=== PATIENT | male | born 1940 | race Caucasian/White ===

== ENCOUNTER → 2016-12-01 14:25 | Outpatient (CLI) | payer MEDICARE | END | disposition home or self-care (01) | LOC: D.US 14:25 → D.MRI 16:00 | DX: R25.1 Tremor, unspecified (principal) ==

== ENCOUNTER 2017-05-13 09:23 | Emergency (ER) | payer MEDICARE ==
[2017-05-13 09:56] LABS: BASOPHILS 0.3 % (0-2); EOSINOPHILS 0.2 % (0-7); HEMATOCRIT 43.9 % (42.0-54.0); HEMOGLOBIN 14.8 g/dL (13.5-17.5); IMMATURE GRANULOCYTES 0.3 % (0-5); LYMPHOCYTES 14.3 % (15-50); MCHC 33.7 g/dL (31.0-37.0); MEAN PLATELET VOLUME 12.2 fL (7.4-10.4); MONOCYTES 17.8 % (2-11); NEUTROPHILS 67.1 % (40-80); PLATELET COUNT 109 10x3/uL (130-400); RBC 4.93 10x6/uL (4.20-6.10); RDW 13.3 % (11.5-14.5); WBC 6.1 10x3/uL (4.8-10.8)
[2017-05-13 10:09] LABS: ALBUMIN 3.8 g/dL (3.4-5.0); ALKALINE PHOSPHATASE 89 U/L (46-116); ALT (SGPT) 42 U/L (10-68); BILIRUBIN - TOTAL 0.44 mg/dL (0.2-1.3); CALC OSMOLALITY 281 mosm/kg (275-300); CALCIUM 9.3 mg/dL (8.5-10.1); CARBON DIOXIDE 24.5 mmol/L (21.0-32.0); CHLORIDE - SERUM 103 mmol/L (98-107); CREATININE - SERUM 1.3 mg/dL (0.6-1.3); GLUCOSE 173 mg/dL (74-106); PROTEIN - SERUM 7.3 g/dL (6.4-8.2); SODIUM 137 mmol/L (136-145); UREA NITROGEN 25 mg/dL (7-18); eGFR NON AFRICAN AMERICAN 57 mL/min (90-120)
[2017-05-13 10:42] LABS: CREATINE KINASE 77 UL (21-232); MAGNESIUM - SERUM 1.7 mg/dL (1.8-2.4)
[2017-05-13 10:43] LABS: TROPONIN-I < 0.017 ng/mL (0.000-0.060)
== END 2017-05-13 12:34 | disposition home or self-care (01) ==
LOC: D.ER 09:23
PROVIDERS: Emergency Medicine
DX: R53.1 Weakness (principal); I10 Essential (primary) hypertension; E11.9 Type 2 diabetes mellitus without complications; H40.9 Unspecified glaucoma; C61 Malignant neoplasm of prostate; I44.0 Atrioventricular block, first degree

== ENCOUNTER 2017-09-17 13:38 | Emergency (ER) | payer MEDICARE ==
[2017-09-17 14:35] LABS: BASOPHILS 0.6 % (0-2); EOSINOPHILS 1.6 % (0-7); HEMOGLOBIN 11.5 g/dL (13.5-17.5); IMMATURE GRANULOCYTES 0.2 % (0-5); LYMPHOCYTES 19.4 % (15-50); MCH 30.8 pg (26.0-34.0); MCHC 32.9 g/dL (31.0-37.0); MCV 93.8 fL (80.0-100.0); MEAN PLATELET VOLUME 12.5 fL (7.4-10.4); MONOCYTES 6.8 % (2-11); NEUTROPHILS 71.4 % (40-80); PLATELET COUNT 125 10x3/uL (130-400); RBC 3.73 10x6/uL (4.20-6.10); WBC 6.2 10x3/uL (4.8-10.8)
[2017-09-17 14:51] LABS: INR 1.13 (0.85-1.17); PROTIME 14.4 SECONDS (11.6-15.0)
[2017-09-17 14:52] LABS: APTT 29.8 SECONDS (22.8-39.4)
[2017-09-17 14:57] LABS: ALBUMIN 3.2 g/dL (3.4-5.0); BILIRUBIN - TOTAL 0.25 mg/dL (0.2-1.3); CALCIUM 9.3 mg/dL (8.5-10.1); CARBON DIOXIDE 24.3 mmol/L (21.0-32.0); CREATININE - SERUM 1.1 mg/dL (0.6-1.3); POTASSIUM - SERUM 4.3 mmol/L (3.5-5.1); PROTEIN - SERUM 6.6 g/dL (6.4-8.2)
[2017-09-17 16:24] LABS: APPEARANCE CLEAR (CLEAR); BILIRUBIN NEGATIVE (NEGATIVE); COLOR YELLOW (YELLOW); GLUCOSE NEGATIVE (NEGATIVE); KETONE NEGATIVE (NEGATIVE); NITRITE NEGATIVE (NEGATIVE); PROTEIN TRACE mg/dL (NEGATIVE); SPECIFIC GRAVITY 1.015 (1.005-1.020); UROBILINOGEN NORMAL (NORMAL)
[2017-09-17 19:31] LABS: HEMATOCRIT 33.5 % (42.0-54.0); HEMOGLOBIN 11.2 g/dL (13.5-17.5)
[2017-12-20] MEDS ORDERED: NORVASC5 MG PO (11:19)
[2017-12-20] MEDS ORDERED: LIPITOR80 MG PO (11:20)
[2017-12-20] MEDS ORDERED: COREG12.5 MG PO (11:20)
[2017-12-20] MEDS ORDERED: ISOSORBIDE MONO30 M1 PO (11:21)
[2017-12-20] MEDS ORDERED: PRINIVIL20 MG PO (11:21)
[2017-12-20] MEDS ORDERED: GLUCOPHAGE1000 MG PO (11:22)
[2017-12-20] MEDS ORDERED: XALATAN 0.0052.5 ML EACH EYE (11:22)
[2017-12-21 08:50] VITALS: BMI 24.4
== END 2017-09-17 19:42 | disposition home or self-care (01) ==
LOC: OBSVTIME → D.ER 13:38 → OBSVTIME 19:18 → D.M2 19:18 → D.ER 19:18
PROVIDERS: Family Medicine; Nurse Practitioner Family
DX: K92.2 Gastrointestinal hemorrhage, unspecified (principal); E11.9 Type 2 diabetes mellitus without complications; H40.9 Unspecified glaucoma; I10 Essential (primary) hypertension

== ENCOUNTER 2017-11-29 10:51 | Inpatient (IN) | payer MEDICARE ==
[~2017-11-29] VITALS: Ht 172.7 cm; Wt 71.2 kg
[2017-11-29 11:23] LABS: APPEARANCE CLEAR (CLEAR); BILIRUBIN NEGATIVE (NEGATIVE); COLOR YELLOW (YELLOW); GLUCOSE NEGATIVE (NEGATIVE); KETONE SMALL mg/dL (NEGATIVE); NITRITE NEGATIVE (NEGATIVE); PROTEIN 2+ mg/dL (NEGATIVE); SPECIFIC GRAVITY 1.015 (1.005-1.020); UROBILINOGEN NORMAL (NORMAL)
[2017-11-29 11:49] LABS: BACTERIA FEW /hpf (NONE SEEN); EPITHELIAL CELLS OCC /hpf (0-5); MUCUS <1+ /lpf (NONE SEEN); RED CELLS - URINE 0-5 /hpf (0-5); WHITE CELLS - URINE 0-5 /hpf (0-5)
[2017-11-29 11:50] LABS: HEMATOCRIT 34.4 % (42.0-54.0); HEMOGLOBIN 10.8 g/dL (13.5-17.5); LYMPHOCYTES 14.4 % (15-50); MCH 25.4 pg (26.0-34.0); MCHC 31.4 g/dL (31.0-37.0); MCV 80.8 fL (80.0-100.0); MEAN PLATELET VOLUME 11.5 fL (7.4-10.4); PLATELET COUNT 107 10x3/uL (130-400); RBC 4.26 10x6/uL (4.20-6.10); RDW 14.8 % (11.5-14.5); WBC 4.7 10x3/uL (4.8-10.8)
[2017-11-29 12:04] LABS: ALBUMIN 3.4 g/dL (3.4-5.0); ALKALINE PHOSPHATASE 76 U/L (46-116); ALT (SGPT) 38 U/L (10-68); CALC OSMOLALITY 281 mosm/kg (275-300); CALCIUM 8.9 mg/dL (8.5-10.1); CARBON DIOXIDE 25.6 mmol/L (21.0-32.0); CHLORIDE - SERUM 104 mmol/L (98-107); CREATININE - SERUM 0.9 mg/dL (0.6-1.3); GLUCOSE 138 mg/dL (74-106); POTASSIUM - SERUM 3.4 mmol/L (3.5-5.1); PROTEIN - SERUM 6.8 g/dL (6.4-8.2); SODIUM 140 mmol/L (136-145); UREA NITROGEN 16 mg/dL (7-18); eGFR NON AFRICAN AMERICAN 87 mL/min (90-120)
[2017-11-29] MEDS ORDERED: GABAPENTIN100 MG PO (19:55)
[2017-11-29] MEDS ORDERED: MYSOLINE250 MG (19:55)
[2017-11-29] MEDS ORDERED: PEPCID AC20 MG (19:56)
[2017-11-29] MEDS ORDERED: CARAFATE1 G PO (19:56)
[2017-11-29] MEDS ORDERED: OMEPRAZOLE40 MG (19:57)
[2017-11-29 22:44] VITALS: BP 178/90
[2017-11-30 00:59] VITALS: BP 105/77
[2017-11-30 04:32] VITALS: Ht 172.7 cm; Wt 71.2 kg
[2017-11-30 05:12] LABS: BASOPHILS 0.4 % (0-2); EOSINOPHILS 0.2 % (0-7); HEMATOCRIT 34.9 % (42.0-54.0); MCH 25.8 pg (26.0-34.0); MCHC 31.5 g/dL (31.0-37.0); MCV 81.9 fL (80.0-100.0); MEAN PLATELET VOLUME 11.5 fL (7.4-10.4); MONOCYTES 22.6 % (2-11); NEUTROPHILS 54.8 % (40-80); PLATELET COUNT 107 10x3/uL (130-400); RBC 4.26 10x6/uL (4.20-6.10); RDW 14.9 % (11.5-14.5); WBC 4.5 10x3/uL (4.8-10.8)
[2017-11-30 05:27] VITALS: BP 109/73
[2017-11-30 05:40] LABS: ALBUMIN 2.9 g/dL (3.4-5.0); ALKALINE PHOSPHATASE 63 U/L (46-116); BILIRUBIN - TOTAL 0.31 mg/dL (0.2-1.3); CALC OSMOLALITY 280 mosm/kg (275-300); CALCIUM 8.8 mg/dL (8.5-10.1); CHLORIDE - SERUM 103 mmol/L (98-107); CREATININE - SERUM 0.9 mg/dL (0.6-1.3); GLUCOSE 131 mg/dL (74-106); POTASSIUM - SERUM 3.5 mmol/L (3.5-5.1); PROTEIN - SERUM 6.3 g/dL (6.4-8.2); SODIUM 139 mmol/L (136-145); UREA NITROGEN 16 mg/dL (7-18); eGFR NON AFRICAN AMERICAN 87 mL/min (90-120)
[2017-11-30 05:44] LABS: ALT (SGPT) 48 U/L (10-68); CARBON DIOXIDE 19.1 mmol/L (21.0-32.0)
[2017-11-30 08:52] VITALS: BP 136/67
[2017-11-30 12:07] VITALS: BP 135/71
[2017-11-30 18:02] VITALS: BP 147/80
[2017-11-30 19:00] VITALS: BP 149/77
[2017-12-01] VITALS: BP 167/80
[2017-12-01 04:00] VITALS: BP 178/81
[2017-12-01 06:35] LABS: BASOPHILS 0.3 % (0-2); EOSINOPHILS 1.9 % (0-7); HEMATOCRIT 34.1 % (42.0-54.0); HEMOGLOBIN 10.7 g/dL (13.5-17.5); LYMPHOCYTES 26.8 % (15-50); MCH 25.5 pg (26.0-34.0); MCHC 31.4 g/dL (31.0-37.0); MCV 81.2 fL (80.0-100.0); PLATELET COUNT 102 10x3/uL (130-400); RDW 14.8 % (11.5-14.5)
[2017-12-01 06:36] LABS: WBC 3.1 10x3/uL (4.8-10.8)
[2017-12-01 07:07] LABS: ALBUMIN 2.8 g/dL (3.4-5.0); ALKALINE PHOSPHATASE 58 U/L (46-116); ALT (SGPT) 59 U/L (10-68); BILIRUBIN - TOTAL 0.27 mg/dL (0.2-1.3); CALC OSMOLALITY 288 mosm/kg (275-300); CALCIUM 8.8 mg/dL (8.5-10.1); CARBON DIOXIDE 28.3 mmol/L (21.0-32.0); CHLORIDE - SERUM 105 mmol/L (98-107); CREATININE - SERUM 0.9 mg/dL (0.6-1.3); GLUCOSE 152 mg/dL (74-106); POTASSIUM - SERUM 3.2 mmol/L (3.5-5.1); PROTEIN - SERUM 6.1 g/dL (6.4-8.2); SODIUM 143 mmol/L (136-145); UREA NITROGEN 15 mg/dL (7-18); eGFR NON AFRICAN AMERICAN 87 mL/min (90-120)
[2017-12-01 07:51] VITALS: BP 144/86
[2017-12-01 11:43] VITALS: BP 147/88
[2017-12-01] MEDS ORDERED: TAMIFLU75 MG PO (12:05)
[2017-12-01 15:18] VITALS: BP 147/88
[2017-12-01 16:31] VITALS: BP 152/81
[2017-12-20] MEDS ORDERED: NORVASC5 MG PO (11:19)
[2017-12-20] MEDS ORDERED: LIPITOR80 MG PO (11:20)
[2017-12-20] MEDS ORDERED: COREG12.5 MG PO (11:20)
[2017-12-20] MEDS ORDERED: PRINIVIL20 MG PO (11:21)
[2017-12-20] MEDS ORDERED: ISOSORBIDE MONO30 M1 PO (11:21)
[2017-12-20] MEDS ORDERED: GLUCOPHAGE1000 MG PO (11:22)
[2017-12-20] MEDS ORDERED: XALATAN 0.0052.5 ML EACH EYE (11:22)
== END 2017-12-01 18:11 | disposition home or self-care (01) | DRG 195 ==
LOC: D.ER 10:51 → D.M2 16:15
PROVIDERS: Emergency Medicine
DX: J11.00 Influenza due to unidentified influenza virus with unspecified type of pneumonia (principal); R31.29 Other microscopic hematuria; E11.65 Type 2 diabetes mellitus with hyperglycemia; I10 Essential (primary) hypertension; I25.10 Atherosclerotic heart disease of native coronary artery without angina pectoris; G20 Parkinson's disease; H40.9 Unspecified glaucoma; R74.8 Abnormal levels of other serum enzymes; D64.9 Anemia, unspecified; Z95.5 Presence of coronary angioplasty implant and graft

== ENCOUNTER 2017-12-21 05:52 | Day surgery (SDC) | payer MEDICARE ==
[2017-12-20 12:07] LABS: HEMATOCRIT 35.9 % (42.0-54.0); HEMOGLOBIN 11.1 g/dL (13.5-17.5); MCH 25.5 pg (26.0-34.0); MCHC 30.9 g/dL (31.0-37.0); MCV 82.3 fL (80.0-100.0); MEAN PLATELET VOLUME 11.3 fL (7.4-10.4); RBC 4.36 10x6/uL (4.20-6.10); RDW 15.8 % (11.5-14.5); WBC 4.2 10x3/uL (4.8-10.8)
[2017-12-20 12:22] LABS: CALC OSMOLALITY 291 mosm/kg (275-300); CARBON DIOXIDE 30.7 mmol/L (21.0-32.0); CHLORIDE - SERUM 107 mmol/L (98-107); CREATININE - SERUM 0.9 mg/dL (0.6-1.3); GLUCOSE 173 mg/dL (74-106); POTASSIUM - SERUM 3.9 mmol/L (3.5-5.1); SODIUM 143 mmol/L (136-145); UREA NITROGEN 20 mg/dL (7-18); eGFR NON AFRICAN AMERICAN 87 mL/min (90-120)
[~2017-12-21] VITALS: Ht 175.3 cm; Wt 74.8 kg
--- NOTE | ~2017-12-21 | OP ---
PATIENT NAME: MIMI TAVARES MEDICAL RECORD: [id number] :40 LOCATION:[facility] ADMISSION DATE: SURGEON: JEFF SABILLON DO DATE OF OPERATION: 12/21/2017 PROCEDURE PERFORMED: Right endoscopic carpal tunnel release. PREOPERATIVE DIAGNOSIS: Right carpal tunnel syndrome. POSTOPERATIVE DIAGNOSIS: Right carpal tunnel syndrome. INDICATIONS: Mr. Tavares is a 77-year-old male who has had pain in his right and left hands, right more than left that have waking him up and numbness. His first 3 digits are completely numb on the right hand. He had nerve conduction studies, which showed a distal motor latency of the median nerve of 10.2, which is severe carpal tunnel. I had a discussion with him that we can release it endoscopically and make the pain go away; however, due to the severity of the compression, there is no guarantees that he would get the feeling back, but it is worth to try. He was on board with that and decided to proceed with the procedure. The risks were discussed with him including damage to the median nerve and continued numbness. SURGEON: Jeff Sabillon DO TOURNIQUET TIME: 15 minutes. COMPLICATIONS: None. BLOOD LOSS: Minimal. DESCRIPTION OF PROCEDURE: The patient was taken to the operative suite, laid in supine position, and given general anesthetic, a gram of Ancef prior to surgery. A timeout was performed and everyone was in agreement with the correct site, side, and the patient. The right upper extremity was prepped and draped in sterile fashion with tourniquet above the elbow under the drapes. Once timeout was performed and everyone was in agreement, the right upper extremity was exsanguinated with an Esmarch and tourniquet was inflated to 250 mmHg. After this was done, the incision was marked out over the palmaris longus tendon transversely at the wrist crease approximately 1 cm in length. A 15 blade was used to cut down through the skin and then once the skin was cut, Ragnells were used to bluntly dissect down to the forearm fascia. The forearm fascia was dissected with the Ragnells as well and the median nerve was visualized. The proximal forearm fascia was released at that time with a scissors and pickup and then the carpal tunnel was entered with the dilators. Once we dilated up large enough to get the sheath in, the sheath was put into place and the cannula was put in visualizing the transverse carpal ligament at the length of it. The ligament was cleaned off with a rasp and then probed and ensuring there was nothing else that would be in the blades way being cut. The sheath protected the nerve below it. The transcarpal ligament was cut with a knife, fat was herniated into this site ensuring a good release and then the scope and the knife were withdrawn as well as the sheath and then the remaining fibers were with scissors after the non-sharp end of a Pamela was put in to ensure complete release and visualized under loupe magnification. This was done. There was complete release and the nerve was no longer compressed. The tourniquet was then let down 15 minutes and then 0.5% Marcaine without OPERATIVE REPORT [id number] MIMI TAVARES epinephrine was injected into the area, 10 mL of it and then the wound was closed with a 5-0 Monocryl in inverted interrupted fashion. Steri-Strip was placed over the wound. Adaptic, 4 x 4's, Kerlix, and a Coban was lightly wrapped on the wrist. The patient was awakened and taken to recovery in stable condition. TRANSINT:[id number] Voice Confirmation ID: [id number] DOCUMENT ID: [id number] JEFF SABILLON DO at 1516 CC: [id number] DICTATION DATE: 12/21/17 1119 FILTER PRESS SUPERVISOR: 12/21/[address] [facility] 12/21/17 [facility] [address] [place] [address]
[~2017-12-21 05:52] MED LIST: CARAFATE1 G PO; COREG12.5 MG PO; GABAPENTIN100 MG PO; GLUCOPHAGE1000 MG PO; ISOSORBIDE MONO30 M1 PO; LIPITOR80 MG PO; MYSOLINE250 MG; NORVASC5 MG PO; OMEPRAZOLE40 MG; PEPCID AC20 MG; PRINIVIL20 MG PO; TAMIFLU75 MG PO; XALATAN 0.0052.5 ML EACH EYE
[2017-12-21] MEDS ORDERED: GABAPENTIN100 MG PO (08:47)
[2017-12-21 08:50] VITALS: BP 155/75; Ht 175.3 cm; Wt 74.8 kg
[2017-12-21] MEDS ORDERED: DURICEF500 MG PO (11:13)
[2017-12-21] MEDS ORDERED: HYDROCODON-ACE1 EAC7 PO (11:13)
== END 2017-12-21 13:10 | disposition home or self-care (01) ==
LOC: D.OPS 05:52
PROVIDERS: Anesthesiology
DX: G56.01 Carpal tunnel syndrome, right upper limb (principal); Z01.812 Encounter for preprocedural laboratory examination

== ENCOUNTER 2018-01-04 07:22 | Day surgery (SDC) | payer MEDICARE ==
[2018-01-03 09:16] LABS: BASOPHILS 0.3 % (0-2); EOSINOPHILS 0.9 % (0-7); HEMATOCRIT 36.2 % (42.0-54.0); HEMOGLOBIN 11.3 g/dL (13.5-17.5); IMMATURE GRANULOCYTES 0.2 % (0-5); MCH 25.2 pg (26.0-34.0); MCHC 31.2 g/dL (31.0-37.0); MCV 80.8 fL (80.0-100.0); MEAN PLATELET VOLUME 11.2 fL (7.4-10.4); MONOCYTES 9.1 % (2-11); NEUTROPHILS 79.5 % (40-80); PLATELET COUNT 163 10x3/uL (130-400); RBC 4.48 10x6/uL (4.20-6.10); RDW 16.5 % (11.5-14.5); WBC 9.7 10x3/uL (4.8-10.8)
[2018-01-03 09:28] LABS: CALC OSMOLALITY 293 mosm/kg (275-300); CALCIUM 9.1 mg/dL (8.5-10.1); CARBON DIOXIDE 26.5 mmol/L (21.0-32.0); CHLORIDE - SERUM 107 mmol/L (98-107); CREATININE - SERUM 0.9 mg/dL (0.6-1.3); GLUCOSE 147 mg/dL (74-106); POTASSIUM - SERUM 3.5 mmol/L (3.5-5.1); SODIUM 144 mmol/L (136-145); UREA NITROGEN 23 mg/dL (7-18); eGFR NON AFRICAN AMERICAN 87 mL/min (90-120)
[2018-01-03 09:31] LABS: APTT 31.1 SECONDS (22.8-39.4); INR 1.07 (0.85-1.17); PROTIME 13.5 SECONDS (11.6-15.0)
[~2018-01-04] VITALS: Ht 175.3 cm; Wt 74.8 kg
--- NOTE | ~2018-01-04 | OP ---
PATIENT NAME: MIMI TAVARES MEDICAL RECORD: [id number] :40 LOCATION:[facility] ADMISSION DATE: SURGEON: HOSEA SABILLON DO DATE OF OPERATION: 01/04/2018 PROCEDURE PERFORMED: Left endoscopic carpal tunnel release. PREOPERATIVE DIAGNOSIS: Left carpal tunnel syndrome. POSTOPERATIVE DIAGNOSIS: Left carpal tunnel syndrome. INDICATIONS: Mr. Tavares is a 77-year-old male who presented to my office with bilateral carpal tunnel symptoms and problems, got nerve conduction studies. The right nerve conduction study was very severe carpal tunnel, the left was moderate to severe. He wanted the right done first and this was done 2 weeks ago. A discussion with him with the risks and benefits of the procedure including damage to the nerve and that due to the severity of the compression on the median nerve, he may not get sensation back in his hand, but the pain should improve. After having that discussion with the patient, he was okay with doing the procedure. The right was done 2 weeks ago and the left was done today. SURGEON: Hosea Sabillon DO DESCRIPTION OF PROCEDURE: The patient was taken to the operative suite, laid in supine position, given a gram of Ancef preoperatively. The left upper extremity was prepped and draped with a tourniquet above the drapes of the upper arm. Once this was done, timeout was performed, everyone was in agreement with correct side, site, and patient. The incision was then marked out about a cm in length over the palmaris longus tendon and then the left upper extremity was exsanguinated with an Esmarch and the tourniquet was inflated and was up for 11 minutes. Incision then commenced with a 15 blade down through the skin and then Ragnells were used to bluntly dissect down to the carpal tunnel. Once the median nerve was identified, Ragnells were held to retract the skin and a forearm fasciotomy was done proximal to the wrist and the forearm fascia. Then the carpal tunnel itself was entered with dilators and then once this was dilated up the sheath was entered, protecting the median nerve, had the median nerve below it. The transverse carpal ligament was nicely viewed to the camera. Once the camera was entered into the sheath, a probe and a rasp were used to clean off the transverse carpal ligament. Then the blade was entered in. It had been entered in distal to the transcarpal ligament and cut a little bit through the palmar skin small laceration of less than a centimeter. Then this was noted and the transverse carpal ligament was divided with the same blade below the skin and then once this was done fat had herniated down into the carpal tunnel itself. This was seen with the camera and the more proximal portion of the transverse carpal ligament was divided with the scissors and pickup under direct visualization with loops. After this was completed, the sheath had been withdrawn and the camera too as was the blade prior to this. A larger Ragnell was used to view the carpal tunnel and scissors were used to spread any fibers that may have remained in the transverse carpal ligament. It seemed out to be a very good release. The tourniquet was then let down at 11 minutes. Any bleeding was coagulated with bipolar at that time. Then the laceration that had occurred in the palm just distal to the transverse carpal ligament was closed with 4-0 nylon in a horizontal mattress fashion as well as the incision for the endoscopic carpal tunnel just proximal to the wrist was closed with 4-0 nylon in a horizontal mattress fashion. Then 10 cc of 0.5% OPERATIVE REPORT [id number] MIMI TAVARES Marcaine were used to anesthetize the area and hand was cleaned. Adaptic was put on the wound, 4 x 4s, Kerlix, and Coban was lightly wrapped on the left hand. The patient was awakened and taken to recovery in stable condition. Blood loss was minimal. TRANSINT:[id number] Voice Confirmation ID: [id number] DOCUMENT ID: [id number] HOSEA SABILLON DO at 1452 CC: [id number] DICTATION DATE: 01/04/18 0932 TRUSS ASSEMBLER: 01/04/18 1017 [facility] 01/04/18 [facility] [address] [place] [id number]
[2018-01-04 07:14] VITALS: BP 149/77; Ht 175.3 cm; Wt 74.8 kg
[~2018-01-04 07:22] MED LIST changes: +DURICEF500 MG PO; +HYDROCODON-ACE1 EAC7 PO; +PEPCID AC20 MG PO
[2018-01-04] MEDS ORDERED: DURICEF500 MG PO (09:26)
[2018-01-04] MEDS ORDERED: HYDROCODON-ACE1 EAC7 PO (09:26)
== END 2018-01-04 11:00 | disposition home or self-care (01) ==
LOC: D.OPS 07:22 → D.PAN 09:00 → D.OPS 11:00
PROVIDERS: Anesthesiology
DX: G56.02 Carpal tunnel syndrome, left upper limb (principal); I25.10 Atherosclerotic heart disease of native coronary artery without angina pectoris; I10 Essential (primary) hypertension; E11.9 Type 2 diabetes mellitus without complications; G47.30 Sleep apnea, unspecified; Z01.812 Encounter for preprocedural laboratory examination

== ENCOUNTER 2018-02-13 02:18 | Emergency (ER) | payer MEDICARE ==
[2018-01-04 07:14] VITALS: BMI 24.4
== END 2018-02-13 05:35 | disposition home or self-care (01) ==
LOC: D.ER 02:18
DX: S70.01XA Contusion of right hip, initial encounter (principal); X58.XXXA Exposure to other specified factors, initial encounter; Y93.89 Activity, other specified; Y92.019 Unspecified place in single-family (private) house as the place of occurrence of the external cause; M79.1 Myalgia; H40.9 Unspecified glaucoma; Z86.79 Personal history of other diseases of the circulatory system; I10 Essential (primary) hypertension; Z85.46 Personal history of malignant neoplasm of prostate; G20 Parkinson's disease

== ENCOUNTER 2018-07-12 23:57 | Emergency (ER) | payer MEDICARE ==
[~2018-07-12] VITALS: Ht 175.3 cm; Wt 70.5 kg
[2018-07-12 23:59] VITALS: Ht 175.3 cm; Wt 70.5 kg
[2018-07-13] MEDS ORDERED: ZONISAMIDE50 MG PO (00:05)
[2018-07-13] MEDS ORDERED: COREG25 MG PO (00:08)
[2018-07-13] MEDS ORDERED: FLOMAX0.4 MG PO (00:11)
[2018-07-13 01:30] LABS: BASOPHILS 0.6 % (0-2); EOSINOPHILS 1.5 % (0-7); HEMATOCRIT 38.7 % (42.0-54.0); HEMOGLOBIN 13.3 g/dL (13.5-17.5); IMMATURE GRANULOCYTES 0.4 % (0-5); LYMPHOCYTES 23.2 % (15-50); MCH 30.6 pg (26.0-34.0); MCHC 34.4 g/dL (31.0-37.0); MCV 89.2 fL (80.0-100.0); MONOCYTES 12.2 % (2-11); NEUTROPHILS 62.1 % (40-80); PLATELET COUNT 143 10x3/uL (130-400); RBC 4.34 10x6/uL (4.20-6.10); RDW 13.4 % (11.5-14.5); WBC 5.4 10x3/uL (4.8-10.8)
[2018-07-13 01:42] LABS: ALBUMIN 3.4 g/dL (3.4-5.0); ALKALINE PHOSPHATASE 105 U/L (46-116); ALT (SGPT) 41 U/L (10-68); BILIRUBIN - TOTAL 0.22 mg/dL (0.2-1.3); CALC OSMOLALITY 287 mosm/kg (275-300); CALCIUM 8.8 mg/dL (8.5-10.1); CARBON DIOXIDE 27.4 mmol/L (21.0-32.0); CHLORIDE - SERUM 107 mmol/L (98-107); CREATININE - SERUM 0.8 mg/dL (0.6-1.3); GLUCOSE 108 mg/dL (74-106); POTASSIUM - SERUM 4.3 mmol/L (3.5-5.1); PROTEIN - SERUM 6.9 g/dL (6.4-8.2); SODIUM 143 mmol/L (136-145); UREA NITROGEN 17 mg/dL (7-18); eGFR NON AFRICAN AMERICAN > 90 mL/min (90-120)
[2018-07-13 01:54] LABS: CKMB 1.9 U/L (0.0-3.6); CREATINE KINASE 57 UL (21-232); TROPONIN-I < 0.017 ng/mL (0.000-0.060)
[2018-07-13 03:55] VITALS: BP 140/68
== END 2018-07-13 03:55 | disposition home or self-care (01) ==
LOC: D.ER 23:57
PROVIDERS: Family Medicine
DX: I10 Essential (primary) hypertension (principal); E11.9 Type 2 diabetes mellitus without complications; Z85.46 Personal history of malignant neoplasm of prostate

== ENCOUNTER 2018-09-19 14:53 | Emergency (ER) | payer MEDICARE ==
[~2018-09-19] VITALS: Ht 175.3 cm; Wt 69.1 kg
[~2018-09-19 14:53] MED LIST changes: +COREG25 MG PO; +FLOMAX0.4 MG PO; +ZONISAMIDE50 MG PO
[2018-09-19 14:56] VITALS: Ht 175.3 cm; Wt 69.1 kg
[2018-09-19] MEDS ORDERED: CYCLOBENZAPRINE10 MG PO (16:36)
[2018-09-19] MEDS ORDERED: NAPROSYN500 MG PO (16:36)
[2018-09-19 17:07] VITALS: BP 158/89
== END 2018-09-19 17:08 | disposition home or self-care (01) ==
LOC: D.ER 14:53
DX: M62.838 Other muscle spasm (principal); S29.012A Strain of muscle and tendon of back wall of thorax, initial encounter; V43.52XA Car driver injured in collision with other type car in traffic accident, initial encounter; Y93.89 Activity, other specified; Y92.410 Unspecified street and highway as the place of occurrence of the external cause; S16.1XXA Strain of muscle, fascia and tendon at neck level, initial encounter; E11.9 Type 2 diabetes mellitus without complications; I10 Essential (primary) hypertension; K21.9 Gastro-esophageal reflux disease without esophagitis

== ENCOUNTER → 2021-01-18 11:42 | Outpatient (CLI) | payer OTHER ==
[2021-01-01 13:48] VITALS: BMI 23.6
[~2021-01-18 11:42] MED LIST changes: +CYCLOBENZAPRINE10 MG PO; +NAPROSYN500 MG PO
== END | disposition home or self-care (01) ==
LOC: D.CT 11:00
PROVIDERS: ATTEND Neurological Surgery
DX: S06.5X9A Traumatic subdural hemorrhage with loss of consciousness of unspecified duration, initial encounter (principal)

== ENCOUNTER → 2021-01-25 10:57 | Outpatient (CLI) | payer OTHER ==
[2021-01-01 13:48] VITALS: BMI 23.6
== END | disposition home or self-care (01) ==
LOC: D.CT 10:30
PROVIDERS: ATTEND Neurological Surgery
DX: S06.9X9A Unspecified intracranial injury with loss of consciousness of unspecified duration, initial encounter (principal)

== ENCOUNTER → 2021-02-15 10:32 | Outpatient (CLI) | payer OTHER ==
[2021-01-01 13:48] VITALS: BMI 23.6
== END | disposition home or self-care (01) ==
LOC: D.CT 10:32
PROVIDERS: ATTEND Neurological Surgery
DX: S06.5X9A Traumatic subdural hemorrhage with loss of consciousness of unspecified duration, initial encounter (principal)

== ENCOUNTER 2021-03-13 14:42 | Inpatient (IN) | payer OTHER ==
[2021-03-13] VITALS (7 sets, daily range): BP systolic 135–177; BP diastolic 77–100
[~2021-03-13] VITALS: Ht 175.3 cm; Wt 72.6 kg
[~2021-03-13 14:42] MED LIST changes: -ISOSORBIDE MONO30 M1 PO; +ISOSORBIDE MONO60 M1 PO; +NORVASC10 MG PO; -NORVASC5 MG PO
[2021-03-13] MEDS ORDERED: ASPIRIN EC81 MG PO (15:29)
--- NOTE | 2021-03-13 15:30 | NUR ---
PATIENT RETURNED BACK FROM CT SCAN. AWAKE AND ALERT. APPEARS THAT HEMATOMA AND BRUISING TO LEFT FLANK CONTINUES TO GROW. PHYSICIAN IS AWARE. PAIN MEDS AND NAUSEA MEDS GIVEN AT THIS TIME. FAMILY AT BEDSIDE. NO DISTRESS NOTED AT THI S TIME. C-COLLAR REMOVED PER VERBAL ORDER OF DR. COLEMAN. CALL PARDO IN REACH, SIDE RAILS UP X 2,.
[2021-03-13] MEDS ORDERED: VITAMIN D325 MC1 PO (15:31)
[2021-03-13] MEDS ORDERED: MAG-OX 400 MG400 MG PO (15:32)
[2021-03-13] MEDS ORDERED: REMERON30 MG PO (15:32)
[2021-03-13] MEDS ORDERED: KLONOPIN0.5 MG PO (15:32)
[2021-03-13] MEDS ORDERED: PROPRANOLOL HCL10 MG PO (15:33)
[2021-03-13] MEDS ORDERED: FISH OIL 1,0001 CA1 PO (15:33)
[2021-03-13 15:37] LABS: BASOPHILS 0.3 % (0-2); EOSINOPHILS 0.9 % (0-7); HEMATOCRIT 33.4 % (42.0-54.0); HEMOGLOBIN 10.7 g/dL (13.5-17.5); IMMATURE GRANULOCYTES 0.5 % (0-5); LYMPHOCYTE ABS# 0.78 10x3/uL (1.32-3.57); LYMPHOCYTES 7.8 % (15-50); MCV 93.6 fL (80.0-100.0); MEAN PLATELET VOLUME 11.8 fL (7.4-10.4); MONOCYTES 7.3 % (2-11); NEUTROPHIL ABS# 8.35 10x3/uL (1.78-5.38); NEUTROPHILS 83.2 % (40-80); PLATELET COUNT 151 10x3/uL (130-400); RBC 3.57 10x6/uL (4.20-6.10); RDW 13.5 % (11.5-14.5)
[2021-03-13 15:46] LABS: APTT 30.2 SECONDS (22.8-39.4); INR 1.24 (0.85-1.17); PROTIME 14.5 SECONDS (11.6-15.0)
[2021-03-13 15:48] LABS: ANION GAP 11.4 mmol/L (8-16); CALCIUM 8.3 mg/dL (8.5-10.1); CREATININE - SERUM 1.1 mg/dL (0.6-1.3); POTASSIUM - SERUM 4.4 mmol/L (3.5-5.1)
[2021-03-13 15:54] LABS: BILIRUBIN - TOTAL 0.23 mg/dL (0.2-1.3); PROTEIN - SERUM 5.8 g/dL (6.4-8.2)
--- NOTE | 2021-03-13 17:08 | NUR ---
DR. العراقي CALLED TO UPDATE ON WHAT APPEARS TO BE A GROWING HEMATOMA TO LEFT FLANK AREA. ORDERS GIVEN FOR CBC TO BE REDRAWN AT 1900 AND Q6 HRS AFTER THAT. ALSO WAS TOLD TO PAGE DR. HICKS AND NOTIFY HIM. DR. HICKS CALLED AND MADE AWARE AN HE SUGGESTED TO PLACE AN RADHA WRAP AROUND HIS WAIST TO TRY AND PUT PRESSURE ON THAT AREA.
--- NOTE | 2021-03-13 18:01 | NUR ---
PATIENT HAS TRAUMA BAND [id number] ON
[2021-03-13 18:20] LABS: CKMB 3.1 U/L (0.0-3.6); CREATINE KINASE 427 UL (21-232); MAGNESIUM - SERUM 1.9 mg/dL (1.8-2.4); TROPONIN-I < 0.017 ng/mL (0.000-0.060)
[2021-03-13 18:26] LABS: BILIRUBIN NEGATIVE (NEGATIVE); KETONE NEGATIVE (NEGATIVE); NITRITE NEGATIVE (NEGATIVE); UROBILINOGEN NORMAL mg/dL (< 2)
[2021-03-13 18:27] LABS: SQUAMOUS EPITHELIAL 0-5 HPF (0-4)
[2021-03-13 18:38] LABS: BASOPHILS 0.3 % (0-2); EOSINOPHILS 0.2 % (0-7); HEMATOCRIT 36.4 % (42.0-54.0); HEMOGLOBIN 11.8 g/dL (13.5-17.5); IMMATURE GRANULOCYTES 0.5 % (0-5); LYMPHOCYTE ABS# 0.48 10x3/uL (1.32-3.57); LYMPHOCYTES 4.5 % (15-50); MCH 30.2 pg (26.0-34.0); MCHC 32.4 g/dL (31.0-37.0); MCV 93.1 fL (80.0-100.0); MEAN PLATELET VOLUME 12.3 fL (7.4-10.4); MONOCYTES 7.2 % (2-11); NEUTROPHILS 87.3 % (40-80); PLATELET COUNT 167 10x3/uL (130-400); RBC 3.91 10x6/uL (4.20-6.10); RDW 13.6 % (11.5-14.5); WBC 10.8 10x3/uL (4.8-10.8)
[2021-03-14] VITALS (25 sets, daily range): BP systolic 122–179; BP diastolic 66–96; Ht 175.3 cm; Wt 72.6 kg
[2021-03-14 01:00] LABS: HEMATOCRIT 31.5 % (42.0-54.0); HEMOGLOBIN 10.2 g/dL (13.5-17.5)
[2021-03-14 04:27] LABS: BASOPHILS 0.1 % (0-2); EOSINOPHILS 0.4 % (0-7); HEMATOCRIT 31.4 % (42.0-54.0); HEMOGLOBIN 9.9 g/dL (13.5-17.5); IMMATURE GRANULOCYTES 0.3 % (0-5); LYMPHOCYTE ABS# 1.12 10x3/uL (1.32-3.57); LYMPHOCYTES 16.4 % (15-50); MCH 29.2 pg (26.0-34.0); MCHC 31.5 g/dL (31.0-37.0); MCV 92.6 fL (80.0-100.0); MEAN PLATELET VOLUME 12.2 fL (7.4-10.4); MONOCYTES 19.9 % (2-11); NEUTROPHIL ABS# 4.31 10x3/uL (1.78-5.38); NEUTROPHILS 62.9 % (40-80); PLATELET COUNT 166 10x3/uL (130-400); RBC 3.39 10x6/uL (4.20-6.10); RDW 13.8 % (11.5-14.5)
[2021-03-14 04:29] LABS: WBC 6.9 10x3/uL (4.8-10.8)
[2021-03-14 04:36] LABS: ALBUMIN 2.9 g/dL (3.4-5.0); BILIRUBIN - TOTAL 0.26 mg/dL (0.2-1.3); CALCIUM 8.5 mg/dL (8.5-10.1); CARBON DIOXIDE 25.6 mmol/L (21.0-32.0); CREATININE - SERUM 1.3 mg/dL (0.6-1.3); PROTEIN - SERUM 5.9 g/dL (6.4-8.2)
[2021-03-14 04:50] LABS: ANION GAP 12.1 mmol/L (8-16); POTASSIUM - SERUM 3.7 mmol/L (3.5-5.1)
--- NOTE | 2021-03-14 07:00 | NUR ---
REPORT RECEIVED. ASSESSMENT COMPLETE PER FLOW SHEET. VSS. PT RESTING COMFORTABLY WILL CONTINUE TO MONITOR
--- NOTE | 2021-03-14 08:00 | NUR ---
GIVEN PRN DILAUDID FOR PAIN ASSISTED OOB TO CHAIR WITH NO DIFFICULTY. BREAKFAST GIVEN
--- NOTE | 2021-03-14 09:10 | NUR ---
DR CADENA AT BEDSIDE GIVEN UPDATE NEW ORDERS RECEIVED. PT ATE 80% BREAKFAST.
--- NOTE | 2021-03-14 10:15 | NUR ---
PT BACK TO BED PER REQUEST DENIES FURTHER NEEDS
--- NOTE | 2021-03-14 11:00 | NUR ---
REASSESSMENT OCMPLETE PER FLOW SHEET. NO NEW CHANGES
--- NOTE | 2021-03-14 11:40 | NUR ---
GIVEN LUNCH TRAY ATE 100% RONN AT BEDSIDE NO NEW CHANGES
--- NOTE | 2021-03-14 13:10 | NUR ---
PT OOB TO BEDSIDE COMMODE NO BM NOTED.
--- NOTE | 2021-03-14 15:20 | NUR ---
DR WILLIAMSON AT BEDSIDE NO NEW ORDERS. REASSESSMENT COMPLETE PER FLOW SHEET. NO NEW CHANGES. VSS.
--- NOTE | 2021-03-14 16:10 | NUR ---
PT OOB TO CHAIR PER REQUEST. DENIES FURTHER NEEDS.
--- NOTE | 2021-03-14 16:59 | NUR ---
GIVEN DINNER TRAY. VSS. NO NEW CHANGES
--- NOTE | 2021-03-14 19:00 | NUR ---
BEDSIDE REPORT COMPLETED WITH OFF GOING NURSE. PT IS SITTING UP IN THE CHAIR AT THIS TIME. PT COMPLAINS OF BEING TIRED AND HURTING. ASSISTED PATIENT BACK TO BED AT THIS TIME AND PRN PAIN MEDICATION ADMINISTERED. NO FURTHER NEEDS VOICED. NO S/S OF DISTRESS NOTED. WILL CONTINUE TO MONITOR.
[2021-03-15] VITALS (9 sets, daily range): BP systolic 104–156; BP diastolic 65–79
[2021-03-15 04:36] LABS: BASOPHILS 0.3 % (0-2); EOSINOPHILS 0.9 % (0-7); HEMATOCRIT 31.8 % (42.0-54.0); HEMOGLOBIN 10.6 g/dL (13.5-17.5); IMMATURE GRANULOCYTES 0.3 % (0-5); LYMPHOCYTE ABS# 1.19 10x3/uL (1.32-3.57); LYMPHOCYTES 18.1 % (15-50); MCH 30.5 pg (26.0-34.0); MCHC 33.3 g/dL (31.0-37.0); MCV 91.6 fL (80.0-100.0); MEAN PLATELET VOLUME 12.2 fL (7.4-10.4); MONOCYTES 17.9 % (2-11); NEUTROPHIL ABS# 4.12 10x3/uL (1.78-5.38); NEUTROPHILS 62.5 % (40-80); PLATELET COUNT 152 10x3/uL (130-400); RBC 3.47 10x6/uL (4.20-6.10); RDW 13.9 % (11.5-14.5); WBC 6.6 10x3/uL (4.8-10.8)
[2021-03-15 04:47] LABS: ALBUMIN 2.9 g/dL (3.4-5.0); BILIRUBIN - TOTAL 0.32 mg/dL (0.2-1.3); CALCIUM 8.7 mg/dL (8.5-10.1); CARBON DIOXIDE 25.8 mmol/L (21.0-32.0); CREATININE - SERUM 1.2 mg/dL (0.6-1.3); MAGNESIUM - SERUM 2.1 mg/dL (1.8-2.4); POTASSIUM - SERUM 3.8 mmol/L (3.5-5.1); PROTEIN - SERUM 6.1 g/dL (6.4-8.2)
--- NOTE | 2021-03-15 10:00 | NUR ---
DR. HICKS AT BEDSIDE, UPDATE GIVEN TO FAMILY AND PT, OK TO DC HOME FROM SURGERY STANDPOINT
--- NOTE | 2021-03-15 10:30 | NUR ---
DR. WILLIAMSON AT BEDSIDE, UPDATE GIVEN, OK TO DC HOME
--- NOTE | 2021-03-15 10:42 | NUR ---
LEFT A/C PIV REMOVED AT THIS TIME, PT TOLERATED WELL, DRESSED AND WAITING FOR DISCHARGE
--- NOTE | 2021-03-15 11:34 | NUR ---
PT DC'D AT THIS TIME, VIA WHEELCHAIR
== END 2021-03-15 11:34 | disposition home or self-care (01) | DRG 315 ==
LOC: D.ER 14:42 → D.ICU 18:48
PROVIDERS: Family Medicine; ADMIT Family Medicine; ATTEND Family Medicine
DX: R58 Hemorrhage, not elsewhere classified (principal); S22.32XA Fracture of one rib, left side, initial encounter for closed fracture; S32.039A Unspecified fracture of third lumbar vertebra, initial encounter for closed fracture; D62 Acute posthemorrhagic anemia; S30.1XXA Contusion of abdominal wall, initial encounter; W10.9XXA Fall (on) (from) unspecified stairs and steps, initial encounter; S42.032A Displaced fracture of lateral end of left clavicle, initial encounter for closed fracture; E11.65 Type 2 diabetes mellitus with hyperglycemia; R55 Syncope and collapse; G25.0 Essential tremor; I25.10 Atherosclerotic heart disease of native coronary artery without angina pectoris; I10 Essential (primary) hypertension; N40.0 Benign prostatic hyperplasia without lower urinary tract symptoms; K21.9 Gastro-esophageal reflux disease without esophagitis; M19.90 Unspecified osteoarthritis, unspecified site